=== PATIENT | female | born 1950 | race Caucasian/White ===

== ENCOUNTER 2017-12-21 19:16 | Emergency (ER) | payer MEDICARE, OTHER ==
[~2017-12-21] VITALS: Ht 172.7 cm; Wt 63.5 kg
[~2017-12-21 19:16] MED LIST: ADVIL200 M1 PO; CALCIUM CIT-VI1 EACH PO; CELEXA40 MG PO; CENTRUM COMPLE1 EACH PO; CITALOPRAM HBR40 MG PO; ECOTRIN81 MG PO; FISH OIL500 MG PO; GLUCOSAMINE &1 EAC1 PO; LEVOTHROID75 MCG PO; LEVOTHYROXINE75 MCG PO; PERCOCET 5-3251 EACH PO; PYRIDIUM200 MG PO; SUDOGEST30 MG PO; TRAZODONE HCL50 MG PO; TUMS300 MG PO; TYLENOL325 MG PO; ZYRTEC10 M3 PO
== END 2017-12-21 20:06 | disposition home or self-care (01) ==
LOC: ED 19:16
DX: R13.10 Dysphagia, unspecified (principal); Z88.5 Allergy status to narcotic agent; Z79.899 Other long term (current) drug therapy
CPT/HCPCS: 99282

== ENCOUNTER 2021-11-07 07:30 | Day surgery (SDC) | payer MEDICARE, OTHER ==
[~2021-11-07] VITALS: Ht 172.7 cm; Wt 66.0 kg
[~2021-11-07 07:30] MED LIST changes: +AIRDUO DIGIHAL1 EACH; +ASPIRIN81 MG; +CANDICIDAL CAP1 EACH PO; +FOSAMAX70 MG PO; +PEPCID40 MG PO; +VENTOLIN HFA18 GM INH; +ZITHROMAX250 MG PO; +ZYRTEC10 MG
[2021-11-07] MEDS ORDERED: ALLEGRA ALLERGY60 MG PO (08:04)
[2021-11-07] MEDS ORDERED: VITAMIN C1000 MG PO (08:07)
[2021-11-07] MEDS ORDERED: VITAMIN E180 M1 PO (08:07)
--- NOTE | 2021-11-07 09:32 | NUR ---
11/07/21 0932 Ting John 0930-PT TO PACU IN LL POSITION. EYES OPEN. PT DENIES PAIN AND NAUSEA AND CLOSES EYES WHEN NOT TALKING WITH RN. BREATHING EASY AND UNLABORED. SPO2 >95% ON 2 L O2 VIA NC. PT EDUCATED ABOUT POC IN PACU AND ENCOURAGED TO PASS GAS.
--- NOTE | 2021-11-07 11:21 | NUR ---
HAS BEEN UP TO BR. TAKEN JUICE AND PUDDING. REQUESTED TO GO HOME. STATES FEELS MUCH BETTER. REC'D 600MLS OF 2ND IV.
--- NOTE | 2021-11-08 07:51 | OR ---
[facility] [address], [place] [address] Signed DATE OF OPERATION: 11/07/2021 SURGEON: Kathy Bond MD PREOPERATIVE DIAGNOSES: 1. Minimal internal and external hemorrhoids. 2. Internal anal skin tags. 3. Mother with colonic polyps, age 85. POSTOPERATIVE DIAGNOSES: 1. Minimal internal hemorrhoids. 2. Moderate external hemorrhoids. 3. Small internal anal skin tags. 4. Long redundant tortuous colon. PROCEDURE: Colonoscopy with hot biopsy. ESTIMATED BLOOD LOSS: None. INDICATIONS: Dara is a 70-year-old female, asked to see me for a followup colonoscopy. At age 50, she had a colonoscopy with Dr. Chung, which was said to be negative. I helped with a colonoscopy at age 60 and she had internal and external hemorrhoids with skin tags. She had done well with Versed and fentanyl. We asked to follow up in 10 years. Her mother actually of dementia at age 87. At age 86, for some reason, she underwent a colonoscopy and was said to have some colonic polyps. Dara has no lower GI complaints. In the office, I gave her a pamphlet on colonoscopy and she recalls the test well. There is risk including, but not limited to gas bloating, crampy abdominal pain, bleeding, perforation requiring surgery, and missed diagnosis. We also discussed the need for the IV conscious sedation. She had expressed understanding and wished to proceed. DESCRIPTION OF PROCEDURE: Dara was taken into our endoscopy suite and placed in the left lateral decubitus position. She was given a total of 125 mcg of fentanyl and 6 mg of Versed. A digital rectal exam was performed and she does have indurated moderate-sized bilateral external hemorrhoids. She has good sphincter tone. The adult colonoscope had been introduced and advanced under direct visualization of camera. She has a fairly long redundant Electronically Signed By: KATHY OBND MD 11/08/21 0751 PATIENT NAME: ADRA ROSEN OPERATIVE REPORT DATE OF : 46 REPORT #: [id number] PHYSICIAN: KATHY BOND MD PCP: LETITIA RIOS PA-C REPORT IS CONFIDENTIAL AND NOT TO BE RELEASED WITHOUT AUTHORIZATION [facility] [address], [place] [address] Signed tortuous colon. It took abdominal compression and additional sedation or advanced the scope, even then she was fairly uncomfortable. We used a fair amount of pressure to advance the scope. If she decides to have a followup colonoscopy in the future, she really needs to have monitored anesthesia care, so that she can be much more relaxed and it keeps her at much reduced chance for perforation. Eventually, we made it into the cecum itself. We could see the appendiceal orifice and ileocecal valve. Her prep was good. We took pictures throughout for photodocumentation. The scope was then slowly withdrawn. Again, she has a very long redundant tortuous colon. We made our way back down into the rectum. The scope had been retroflexed and she does have small internal anal skin tags. After the along with her minimal internal hemorrhoid tissue. After this, the gas was suctioned out. The colonoscope removed. Overall, Dara tolerated the procedure well. RECOMMENDATIONS: Dara can return in 10 years for repeat colonoscopy if she would like, however, she would should definitely consider monitored anesthesia care with propofol at that time to improve her sedation and therefore decrease her risk of perforation as described above. Kathy Bond MD ALB/MODL /[id number] cc: MD Letitia Walters PA-C Patient Chart Copies: KATHY BOND MD ~ Electronically Signed By: KATHY BOND MD 11/08/21 0751 PATIENT NAME: DARA ROSEN OPERATIVE REPORT DATE OF : 46 REPORT #: [id number] PHYSICIAN: KATHY BOND MD PCP: LETITIA RIOS PA-C REPORT IS CONFIDENTIAL AND NOT TO BE RELEASED WITHOUT AUTHORIZATION
== END 2021-11-07 11:15 | disposition home or self-care (01) ==
LOC: OPS 07:30 → DS 07:30 → OPS 09:00 → DS 09:00 → OPS 11:15
PROVIDERS: ATTEND Colon & Rectal Surgery
DX: K64.4 Residual hemorrhoidal skin tags (principal); Q43.8 Other specified congenital malformations of intestine; K64.8 Other hemorrhoids; K21.9 Gastro-esophageal reflux disease without esophagitis; N18.30 Chronic kidney disease, stage 3 unspecified; E03.9 Hypothyroidism, unspecified; Z83.71 Family history of colonic polyps; Z79.82 Long term (current) use of aspirin; Z79.899 Other long term (current) drug therapy; Z20.822 Contact with and (suspected) exposure to COVID-19
CPT/HCPCS: 99153; G0500; J2250; J3010; J7121

== ENCOUNTER 2025-05-29 10:00 | Day surgery (SDC) | payer MEDICARE, OTHER ==
[~2025-05-29] VITALS: Ht 170.2 cm; Wt 66.0 kg
[~2025-05-29 10:00] MED LIST changes: +ALLEGRA ALLERGY60 MG PO; +CEFAZOLIN SODIUM 2 GM in SODIUM CHLORIDE 0.9% 100 ML IV SCH; +CENTRUM SILVER1 EAC8 PO; +FISH OIL 1,0001 EAC5 PO; -FISH OIL500 MG PO; +IBLOOD GLUCOSE TEST STRIP 1 EA TEST VI PRN; +LACTATED RINGER'S 1,000 ML IV SCH; +LIDOCAINE HCL 1% 5 ML SDV INJ ONE; +MORPHINE SULFATE 4 MG/ML VIAL IV PRN; +OXYCODONE/APAP 5/325 TAB PO PRN; +PHENAZOPYRIDINE HCL 100 MG TAB PO PRN; +SOLIFENACIN SUC10 MG PO; +TURMERIC500 M3 PO; +VAZALORE81 MG PO; +VITAMIN C1000 MG PO; +VITAMIN D325 MCG PO; +VITAMIN E180 M1 PO
[2025-05-29 10:23] VITALS: BP 128/73
[2025-05-29] MEDS ORDERED: LIDOCAINE HCL 2% 5 ML SDV ONE (10:39)
--- NOTE | 2025-05-29 13:48 | NUR ---
05/29/25 1348 Carmela Arana 1314 PT ARRIVED IN PACU SLEEPY. 1325 AWAKE AND TALKING TO STAFF. NO C/O'S. 1343 C/O BURNING FROM SURGERY SITE. PYRIDIUM 200MG PO GIVEN WITH WATER. 1348 VISITNG WITH STAFF.
[2025-05-29 14:11] VITALS: BP 148/79
[2025-05-29 15:33] VITALS: BP 151/89
[2025-05-29] MEDS ORDERED: NITROFURANTOIN MONOHYD MACROCR 100 MG CAP PO ONE (17:30)
[2025-05-29 17:38] VITALS: BP 145/76
--- NOTE | 2025-05-29 18:23 | NUR ---
SANDRA 1410-PT BACK TO ROOM FROM PACU ON RA. RECEIVED REPORT FROM GILBERTO VELASCO. PT IS AWAKE. RESP EVEN AND UNLABORED. PT RATES PAIN 3/10. DENIES NAUSEA. PT IS DRINKING WATER. NO OTHER NEEDS AT THIS TIME. AT BEDSIDE. CALL LIGHT WITHIN REACH.
--- NOTE | 2025-05-29 18:33 | NUR ---
LE 1455-PT UNABLE TO VOID. BLADDER SCAN SHOWS 391ML OF URINE. LE 1457-PT UP TO REST ROOM. PT UNABLE TO VOID. SMALL DROPS OF BLOOD NOTED IN HAT. LE 1505-PT AMBULATES BACK TO ROOM. PT LAYING IN BED. WARM BLANKETS PROVIDED. IN ROOM WITH PT. CALL LIGHT WITHIN REACH.
--- NOTE | 2025-05-29 18:36 | NUR ---
LE 1533-PT LAYING IN BED. RESP EVEN AND UNLABORED. STATES A LITTLE DISCOMFORT. PT DRINKING WATER. LE 1535-PT UP TO RESTROOM. PT UNABLE TO VOID. SMALL BLOOD CLOT NOTED IN HAT. LE 1542-PT UP TO RESTROOM. UNABLE TO VOID. LE 1545-PT WALKING AROUD DEPARTMENT. LE 1600-PT BACK TO ROOM. PT LAYING IN BED. RESP EVEN AND UNLABORED. STATES SOME DISCOMFORT. AT BEDSIDE. PT DRINKING WATER. NO OTHER NEEDS AT THIS TIME. CALL [facility] WITHIN REACH. LE 1630-PT UP TO RESTROOM. PT ABLE TO VOID A SMALL AMOUNT OF PINK TINGED URINE. LE 1635-BLADDER SCAN SHOWS 680ML OF URINE IN BLADDER. PT STATES HAVING INCREASED DISCOMFORT. LE 1642-PHONE CALL TO DR MCFARLANE. VO TO PLACE [facility] CATH USING A 12F. [facility] TO STAY IN PLACE UNTIL TOMORROW. PT WILL NEED TO BE SEEN IN DR MCFARLANE OFFICE. OFFICE TO CALL PT AND SET UP APPT.
--- NOTE | 2025-05-29 18:42 | NUR ---
LE [id number] 3 RNS UNSUCCESSFUL AT [facility] CATH PLACEMENT. STERILITY MAINTAINED. PHONE CALL TO DR MCFARLANE WITH UPDATE. LE 170-DR MCFARLANE IN ROOM WITH PT. DR MCFARLANE ABLE TO PLACE CATH USING STERILE TECHNIQUE. 10ML OF STERILE WATER PLACED IN SCRUGGS BALLOON. PT TOLERATED WELL.750ML DRANINED FROM BLADDER. PT STATES SHE FEELS BETTER. LE 1725- VO PER DR MCFARLANE FOR MACROBID 100MG PO NOW. ORDER PLACE IN COMPUTER AND PHARMACY CALLED. LE 1730-THIS RN AND HELPED PT GET DRESSED. EDUCATION GIVEN ON [facility] CATH CARE. ALL QUESTIONS ANSWERED. LE 1740-WENT OVER DISCHARGE INSTURCTIONS WITH PT AND . ALL QUESTIONS ANSWERED. LE 1745-PT AMBULATES TO WHEELCHAIR AND RIDE PROVIDED TO FRONT OF HOSPITAL WHERE WAS WAITING WITH THE CAR. PT FEELING MUCH BETTER WHEN LEAVING.
== END 2025-05-29 17:45 | disposition home or self-care (01) ==
LOC: DS 10:00
PROVIDERS: ATTEND Urology
PROC: 0TVD3ZZ Restriction of Urethra, Percutaneous Approach (ICD-10-PCS; principal; 2025-05-29 12:15)
DX: N39.3 Stress incontinence (female) (male) (principal); N36.42 Intrinsic sphincter deficiency (ISD); N18.30 Chronic kidney disease, stage 3 unspecified; K21.9 Gastro-esophageal reflux disease without esophagitis; Z88.5 Allergy status to narcotic agent; Z79.899 Other long term (current) drug therapy
CPT/HCPCS: 00910; J0688; J2003; J2405; J2704; J7121; L8606